=== PATIENT | female | born 1980 | race Caucasian/White ===

== ENCOUNTER 2018-11-10 17:54 | Inpatient (IN) | payer BC ==
[2018-11-10] MEDS ORDERED: Buffered Lidocaine 1% SYRIN* 1 ML/SYRINGE INTRADERM ONE (21:26)
[2018-11-10] MEDS ORDERED: Lactated Ringers 1000 ML Bag* 1,000 ML IV ONE (21:26)
--- NOTE | 2018-11-10 21:33 | HP ---
General Information - Reason for Visit Pt reports contractions increasing in intensity and back pain - General Information Maternal Age: 38 Grav: 1 Para: 0 SAB: 0 IEA: 0 Estimated Due Date: 11/10/18 Determined By: LMP Gestational Age in Weeks/Days: 40w Maternal Blood Type and Rh: A Positive - Results this Serology/RPR Result: Non-Reactive Rubella Result: Immune HBsAg Result: Negative HIV Result: Negative GBS Culture Result: Negative Past Medical History Pertinent Past Medical History: Non-Contributory Pertinent Past Surgical History: None Pertinent Family History: See Records - F: HTN; PGM: Br CA; M: PMR; MGM: thyroid; MGF: stroke - Antepartal Records Antepartal Records: Reviewed, Complicated by: - AMA Review of Systems Constitutional: Uncomfortable CV Complaint: No Respiratory: Shortness of Breath: No Gastrointestinal: No Nausea/Vomiting, Normal Bowel Movement Genitourinary: No Dysuria, No Leaking Fluid, Spotting Musculoskeletal: Back Pain, Contractions Neurological: No Headache, No Visual Changes Movement: Normal Exam Allergies/Adverse Reactions: Allergies No Known Allergies Allergy (Verified 11/10/18 18:53) T:98.4, P:79, R:18, BP:155/93, O2:98% - Measurements Height: 5 ft 8 in Weight: 181 lb Weight in lbs: [id number] Body Mass Index (BMI): 27.5 Pre- Weight: 152 lb Weight Gained This : 29 lbs and 0 ozs - Exam Breast: Breast Exam Deferred CVA: No CVA Tenderness Extremities: No Edema Heart: Normal Rhythm/Heart Sounds HEENT: No Significant Findings Lungs: Clear Bilaterally Rectal: Rectal Exam Deferred Reflexes: DTR 2+ Thyroid: No Thyromegaly - Abdominal Exam Abdomen Exam: Fundal Height Consistent with Dates - Ultrasound/Biophysical Profile Ultrasound Status: Not Done Targeted Exam Findings Estimated Weight: 7lbs 10oz Cervical Exam: 8cm Effacement: 100% Station: -1 Presenting Part: Vertex Membrane Status: Bulging EFM Findings - External Monitor Findings Baseline Heart Rate: 145 External Monitor Findings: Accelerations Present, No Pattern of Variable or Late Decelerations, Variability Moderate, Baseline Stable Contractions: Regular, Moderate, 45-90 Seconds Contraction Frequency: 2-3 Assessment/Plan - Assessment 38 y.o. , 40w EGA, active labor, gestational hypertension - Obstetrical Risk Factors Obstetrical Risk Factors: Gestational Hypertension - Plan Plan: Admit - Anticipate Vaginal Delivery Plan Comment: labs to rule out preeclampsia - Date/Time of Admission Date of Admission: 11/10/18 Time of Admission: 21:30
[2018-11-10 22:00] LABS: Urine Benzodiazepine Screen None Detected (None Detect); Urine Opiates Screen None Detected (None Detect)
[2018-11-10] MEDS ORDERED: Lactated Ringers 1000 ML Bag* 1,000 ML IV SCH (22:00)
[2018-11-11] MEDS ORDERED: Dibucaine 1% 28.35 GM TUBE PR PRN (00:45)
[2018-11-11] MEDS ORDERED: Glycerin ADULT SUPP PR PRN (00:45)
[2018-11-11] MEDS ORDERED: OXYTOCIN* 10 UNITS/ML 1 ML VIAL IM ONE (00:45)
[2018-11-11] MEDS ORDERED: Witch Hazel PAD* JAR TOPICAL PRN (00:45)
[2018-11-11] MEDS ORDERED: Acetaminophen TAB* 325 MG PO PRN (00:45)
--- NOTE | 2018-11-11 00:46 | PROCNOTE ---
[facility] OB: Delivery Note - Delivery A Date of : 11/11/18 Time of : 00:05 Sex: Male Score 1 Minute: 9 Score 5 Minutes: 9 Gestational Age in Weeks and Days at Delivery: 40 Weeks and 1 Days Delivery Method: Spontaneous Vaginal Labor: Spontaneous Did Patient attempt ?: N/A, No Previous Amniotic Fluid: Clear Estimated Blood Loss: 400 Anesthesia/Analgesia: Nitrous-Labor Delivered By: Chhaya Merida - Nursery Level of Nursery: Regular/Bedside - Perineum Perineal Injury: Perineal Laceration, 2nd Degree Perineal Repair: By Delivering Practioner - Events Delivery Events of Note: Pitocin Only After Delivery
[2018-11-11] MEDS ORDERED: Lactated Ringers 1000 ML Bag* 1,000 ML IV SCH (01:00)
[2018-11-11 02:09] LABS: Hematocrit 34 % (35-47); Hemoglobin 11.8 g/dL (12.0-16.0); Mean Corpuscular HGB Conc 35 g/dL (31-36); Mean Corpuscular Hemoglobin 31 pg (27-31); Mean Corpuscular Volume 89 fL (80-97); Mean Platelet Volume 10.5 fL (7.4-10.4); Platelet Count 175 10^3/uL (150-450); Red Blood Count 3.78 10^6 /uL (3.70-4.87); Red Cell Distribution Width 13 % (10-15); White Blood Count 34.2 10^3/uL (3.5-10.8)
[2018-11-11] MEDS: Ibuprofen TAB* 600 MG PO PRN ×3 (02:27→20:28)
[2018-11-11 02:40] LABS: Albumin 3.4 g/dL (3.2-5.2); Calcium 9.1 mg/dL (8.6-10.3); Potassium 3.6 mmol/L (3.5-5.0); Total Bilirubin 0.6 mg/dL (0.2-1.0)
[2018-11-11 02:46] LABS: Albumin/Globulin Ratio 1.4 (1-3); BUN/Creatinine Ratio 15.7 (8-20); EGFR African American 165.1 (>60); EGFR Non-African American 136.5 (>60); Globulin 2.4 g/dL (2-4); Total Protein 5.8 g/dL (6.4-8.9)
[2018-11-11 03:07] LABS: ABS Basophils 0.4 10^3/ul (0-0.2); ABS Lymphocytes 1.7 10^3/ul (1.0-4.8); ABS Monocytes 1.4 10^3/ul (0-0.8); ABS Neutrophils 30.8 10^3/ul (1.5-7.7); Lymphocyte % 4.9 %
[2018-11-11] MEDS ORDERED: Lidocaine 1% INJ* 10 MG/ML 30 ML SDV ONE (03:23)
[2018-11-11 03:27] LABS: Urine Appearance Clear; Urine Bacteria 1+ (Absent); Urine Bilirubin Negative (Negative); Urine Blood 3+ (Negative); Urine Glucose Negative (Negative); Urine Ketones 1+ (Negative); Urine Nitrite Negative (Negative); Urine Protein 2+(100 mg/dL) (Negative); Urine Red Blood Cell 3+(>10/hpf) (Absent); Urine Specific Gravity 1.003 (1.010-1.030); Urine Urobilinogen Negative (Negative); Urine White Blood Cell 3+(>20/hpf) (Absent)
[2018-11-11 03:28] LABS: Urine Color Amber
[2018-11-11] MEDS ORDERED: Simethicone TAB* 80 MG TAB.CHEW PO SCH (08:30)
[2018-11-11] MEDS: Docusate CAP* 100 MG PO SCH ×3 (09:26→20:28)
--- NOTE | 2018-11-11 15:43 | PTEDU ---
Patient Name: DUSTIN RICHARDS DUSTIN RICHARDS selected video: Follow Me Mum: [facility] to view on 2018 at 3:42:20 PM from [id number]
--- NOTE | 2018-11-11 15:58 | PTEDU ---
Patient Name: DUSTIN RICHARDS DUSTIN RICHARDS selected video: Follow Me Mum: [facility] to [facility] on 2018 at 3:57:27 [id number]
[2018-11-12] MEDS: Docusate CAP* 100 MG PO SCH ×3 (08:28→20:29)
[2018-11-12] MEDS: Ibuprofen TAB* 600 MG PO PRN ×2 (08:28→20:30)
[2018-11-12 08:55] LABS: ABS Basophils 0.1 10^3/ul (0-0.2); ABS Eosinophils 0.2 10^3/ul (0-0.6); ABS Lymphocytes 2.7 10^3/ul (1.0-4.8); ABS Neutrophils 14.9 10^3/ul (1.5-7.7); Eosinophil % 0.9 %; Hematocrit 29 % (35-47); Hemoglobin 10.1 g/dL (12.0-16.0); Lymphocyte % 14.4 %; Mean Corpuscular HGB Conc 35 g/dL (31-36); Mean Corpuscular Hemoglobin 32 pg (27-31); Mean Corpuscular Volume 92 fL (80-97); Mean Platelet Volume 9.8 fL (7.4-10.4); Platelet Count 150 10^3/uL (150-450); Red Blood Count 3.13 10^6 /uL (3.70-4.87); Red Cell Distribution Width 13 % (10-15); White Blood Count 18.9 10^3/uL (3.5-10.8)
[2018-11-12] MEDS: Ferrous Gluconate TAB* 324 MG TAB PO SCH ×2 (09:37→20:29)
--- NOTE | 2018-11-12 11:36 | PTEDU ---
Patient Name: DUSTIN RICHARDS DUSTIN RICHARDS selected video: BBOB: Bonding Through Infant Massage to view on 11/12/2018 at 11:35: 15 AM from [id number]
[2018-11-13] MEDS: Docusate CAP* 100 MG PO SCH (07:19)
[2018-11-13] MEDS: Ibuprofen TAB* 600 MG PO PRN ×2 (07:19→15:24)
[2018-11-13 08:48] VITALS: BP 127/70
== END 2018-11-13 16:46 | disposition home or self-care (01) | DRG 560 ==
LOC: MCHOBOUT 17:54 → MCHOB 21:04
PROVIDERS: ADMIT Midwife; ATTEND Midwife
PROC: 10E0XZZ Delivery of Products of Conception, External Approach (ICD-10-PCS; principal; 2018-11-11)
PROC: 0KQM0ZZ Repair Perineum Muscle, Open Approach (ICD-10-PCS; 2018-11-11)
DX: O48.0 Post-term pregnancy (principal); Z37.0 Single live birth; Z3A.40 40 weeks gestation of pregnancy; O13.4 Gestational [pregnancy-induced] hypertension without significant proteinuria, complicating childbirth; O14.94 Unspecified pre-eclampsia, complicating childbirth; O70.1 Second degree perineal laceration during delivery
CPT/HCPCS: 36415; 80053; 80307; 81003; 81015; 85025; 86850; 86900; 86901; 87086; A9270-GY; J2590

== ENCOUNTER 2022-03-16 16:53 | Inpatient (IN) ==
[2022-03-16] MEDS ORDERED: Buffered Lidocaine 1% SYRIN 1 ml INTRADERM ONE (17:53)
[2022-03-16] MEDS ORDERED: Lactated Ringers 1000 ml BAG 1,000 ML IV ONE (17:53)
[2022-03-16] MEDS ORDERED: Lactated Ringers 1000 ml BAG 1,000 ML IV SCH ×2 (18:00→22:00)
[2022-03-16] MEDS ORDERED: Labetalol IV 5 MG/ML 20 ml VIAL IV PUSH ONE (18:58)
[2022-03-16] MEDS ORDERED: Calcium Gluconate 1 GM/10 ML VIAL (in Pyxis) IV PUSH PRN (18:59)
[2022-03-16] MEDS ORDERED: Magnesium Sulfate OB PREMIX 6 GM/150 ML BAG IV ONE (18:59)
[2022-03-16] MEDS ORDERED: Oxytocin in LR 20,000 MILLI.UNIT/1,000 ML BAG IV SCH (19:00)
[2022-03-16] MEDS ORDERED: Magnesium Sulfate OB PREMIX 40 GM/1,000 ML BAG IVPB SCH (19:00)
[2022-03-16 19:08] LABS: ABS Basophils 0.1 10^3/ul (0-0.2); ABS Eosinophils 0.3 10^3/ul (0-0.6); ABS Lymphocytes 2.4 10^3/ul (1.0-4.8); ABS Monocytes 0.8 10^3/ul (0-0.8); ABS Neutrophils 8.6 10^3/ul (1.5-7.7); Eosinophil % 2.5 %; Hematocrit 36 % (35-47); Hemoglobin 12.6 g/dL (12.0-16.0); Lymphocyte % 19.7 %; Mean Corpuscular HGB Conc 35 g/dL (31-36); Mean Corpuscular Hemoglobin 32 pg (27-31); Mean Corpuscular Volume 91 fL (80-97); Mean Platelet Volume 11.5 fL (7.4-10.4); Nucleated Red Blood Cells % 0.1; Platelet Count 166 10^3/uL (150-450); Red Cell Distribution Width 13 % (10-15); White Blood Count 12.1 10^3/uL (3.5-10.8)
[2022-03-16 19:19] LABS: Platelet Count 166 10^3/ul (150-450)
[2022-03-16 19:25] LABS: Urine Benzodiazepine Screen None Detected (None Detect); Urine Cannabinoids Screen None Detected (None Detect); Urine Opiates Screen None Detected (None Detect)
[2022-03-16 19:28] LABS: Activated Partial Thrombo Time 27.8 seconds (26.0-38.0); INR 0.81 (0.89-1.11)
[2022-03-16 19:36] LABS: Albumin 3.5 g/dL (3.2-5.2); Albumin/Globulin Ratio 1.5 (1-3); Calcium 8.9 mg/dL (8.6-10.3); Globulin 2.3 g/dL (2-4); Potassium 4.1 mmol/L (3.5-5.0); Total Bilirubin 0.3 mg/dL (0.2-1.0); Total Protein 5.8 g/dL (6.4-8.9); Uric Acid 6.8 mg/dL (2.3-6.6); eGFR CKD-EPI 105.5 (>60)
[2022-03-16 19:53] LABS: Schistocytes ABSENT
[2022-03-16] MEDS ORDERED: Witch Hazel PAD JAR TOPICAL PRN (21:05)
[2022-03-16] MEDS ORDERED: Dibucaine 1% OINT 28.35 GM TUBE PR PRN (21:05)
[2022-03-16] MEDS ORDERED: Oxytocin 10 UNITS/ML 1 ML VIAL IM ONE (21:05)
[2022-03-16] MEDS ORDERED: Labetalol IV 5 MG/ML 20 ml VIAL IV ONE (23:30)
[2022-03-17] MEDS ORDERED: Lidocaine 1% VIAL 10 MG/ML VIAL 30 ML ONE (00:44)
[2022-03-17 07:09] LABS: ABS Basophils 0.1 10^3/ul (0-0.2); ABS Eosinophils 0.1 10^3/ul (0-0.6); ABS Lymphocytes 2.7 10^3/ul (1.0-4.8); ABS Monocytes 0.9 10^3/ul (0-0.8); ABS Neutrophils 15.7 10^3/ul (1.5-7.7); Eosinophil % 0.6 %; Hematocrit 35 % (35-47); Hemoglobin 11.8 g/dL (12.0-16.0); Lymphocyte % 13.7 %; Mean Corpuscular HGB Conc 34 g/dL (31-36); Mean Corpuscular Hemoglobin 31 pg (27-31); Mean Corpuscular Volume 91 fL (80-97); Mean Platelet Volume 11.1 fL (7.4-10.4); Platelet Count 147 10^3/uL (150-450); Red Blood Count 3.85 10^6 /uL (3.70-4.87); Red Cell Distribution Width 13 % (10-15); White Blood Count 19.5 10^3/uL (3.5-10.8)
[2022-03-18 08:24] VITALS: BP 141/88
== END 2022-03-18 14:39 | disposition home or self-care (01) | DRG 560 ==
LOC: MCHOBOUT 16:53 → MCHOB 17:35
PROVIDERS: ADMIT Midwife; ATTEND Midwife